=== PATIENT | male | born 1945 | race Caucasian/White ===

== ENCOUNTER 2016-08-02 12:41 | Day surgery (SDC) | payer MEDICARE ==
[2016-08-02] VITALS (12 sets, daily range): BP systolic 107–175; BP diastolic 58–91; PULSE 72–92; TEMP 97.7
[~2016-08-02] VITALS: Ht 185.5 cm; Wt 90.0 kg
[2016-08-02] MEDS ORDERED: HCTZ 25MG TAB25 MG PO (13:29)
[2016-08-02] MEDS ORDERED: COREG 25MG25 MG/TAB PO (13:30)
[2016-08-02] MEDS ORDERED: COZAAR100 MG PO (13:32)
[2016-08-02] MEDS ORDERED: NORVASC 10MG10 MG PO (13:33)
[2016-08-02] MEDS ORDERED: ASPIRIN 81M81 MG/TA2 PO (13:33)
[2016-08-02] MEDS ORDERED: LIPITOR20 MG PO (13:34)
[2016-08-02] MEDS ORDERED: OMEGA-3 FISH1000 MG PO (13:35)
[2016-08-02 14:22] LABS: HEMATOCRIT 37.4 % (42.0-52.0); HEMOGLOBIN 13.1 g/dl (13.5-18.0); MEAN CELL VOLUME 96 fl (80.0-100.0); MEAN CORPUSCULAR HEMOGLOBIN 34 pg (27.0-31.0); MEAN CORPUSCULAR HGB CONC 35 g/dl (33.0-37.0); MEAN PLATELET VOLUME 9.8 fl (7.4-10.4); PLATELET COUNT 201 K/mm3 (130-400); RED BLOOD COUNT 3.91 M/mm3 (4.20-5.60); REDCELL DISTRIBUTION WIDTH-CV 12.6 % (11.5-14.5); WHITE BLOOD COUNT 6.7 K/mm3 (4.8-10.8)
[2016-08-02 14:55] LABS: INR 1.1 (0.8-3.0); PROTHROMBIN TIME 11.7 SECONDS (9.7-12.8)
[2016-08-02 15:05] LABS: CALCIUM 10.2 mg/dL (8.4-10.2); CREATININE, serum 1.42 mg/dL (0.66-1.25); POTASSIUM 3.8 mmol/L (3.4-5.0)
[2016-08-03] VITALS (7 sets, daily range): BP systolic 131–145; BP diastolic 58–70; PULSE 70–77; TEMP 97.7–98.6
== END 2016-08-03 17:08 | disposition critical access hospital (66) ==
LOC: EUO 12:41 → COL.RAD 12:45 → MEDICAL 18:00 → EUO 08-03 17:08
PROVIDERS: Internal Medicine Interventional Cardiology
DX: I25.10 Atherosclerotic heart disease of native coronary artery without angina pectoris (principal); I10 Essential (primary) hypertension; I71.4 Abdominal aortic aneurysm, without rupture; R94.39 Abnormal result of other cardiovascular function study; R09.89 Other specified symptoms and signs involving the circulatory and respiratory systems; M79.605 Pain in left leg; M79.604 Pain in right leg; R25.2 Cramp and spasm; Z87.891 Personal history of nicotine dependence
CPT/HCPCS: OP; C1769; C1887; C1894; J2250; J3010

== ENCOUNTER → 2016-11-08 | Outpatient (REF) ==
[~2016-11-08] MED LIST: ASPIRIN 81M81 MG/TA2 PO; COREG 25MG25 MG/TAB PO; COZAAR100 MG PO; HCTZ 25MG TAB25 MG PO; LIPITOR20 MG PO; NORVASC 10MG10 MG PO; OMEGA-3 FISH1000 MG PO
== END ==
LOC: ZLAB.WCH 10:51
DX: Z01.89 Encounter for other specified special examinations (principal)
CPT/HCPCS: G0103

== ENCOUNTER → 2017-11-08 | Outpatient (REF) | LOC: ZLAB.WCH 17:43 | DX: Z01.89 Encounter for other specified special examinations (principal) | CPT/HCPCS: G0103 ==

== ENCOUNTER → 2019-02-06 | Outpatient (CLI) | payer MEDICARE ==
[~2019-02-06] MED LIST changes: +COREG12.5 MG PO; +COZAAR 25MG25 MG/TAB PO; +DESYREL 50MG50 MG PO; +LIPITOR 40MG TA40 MG PO; +NORVASC2.5 MG PO; +OMEGA-3 1000 MG1 CAP PO; +PRED FORTE 1 ML1 ML OD; +PRESERVISION1 SGL PO; +VENTOLIN0.09 MG IH
== END ==
LOC: COL.RAD 09:25
DX: I12.9 Hypertensive chronic kidney disease with stage 1 through stage 4 chronic kidney disease, or unspecified chronic kidney disease (principal); N18.3 Chronic kidney disease, stage 3 (moderate)